=== PATIENT | male | born 1975 | race Caucasian/White ===

== ENCOUNTER 2024-01-22 20:11 | Inpatient (IN) | payer OTHER ==
[2024-01-22 21:13] VITALS: BMI 30.3
[2024-01-22] MEDS ORDERED: BENZOCAINE/MENTHOL (CHLORASEPTIC ) LOZENGE MM PRN (21:53)
[2024-01-22] MEDS ORDERED: LOPERAMIDE HCL 2 MG CAPSULE PO PRN (21:53)
[2024-01-22] MEDS ORDERED: NALOXONE HCL 0.4 MG/ML VIAL IM PRN (21:53)
[2024-01-22] MEDS ORDERED: NALOXONE HCL (KLOXXADO) 8 MG SPRAY NS PRN (21:53)
[2024-01-22] MEDS ORDERED: ACETAMINOPHEN 325 MG TABLET (FP) PO PRN (21:53)
[2024-01-22] MEDS ORDERED: IBUPROFEN 400 MG TABLET (FP) PO PRN (21:53)
[2024-01-22] MEDS ORDERED: guaiFENesin 600 MG TABLET.ER (FP) PO PRN (21:53)
[2024-01-22] MEDS ORDERED: MAGNESIUM HYDROX 2400MG/30ML ORAL SUSPENSION 30 ML CUP PO PRN (21:53)
[2024-01-22] MEDS ORDERED: NICOTINE POLACRILEX 2 MG GUM BUC PRN (21:53)
[2024-01-22] MEDS ORDERED: BENZONATATE 200 MG CAPSULE PO PRN (21:53)
[2024-01-22] MEDS ORDERED: IBUPROFEN 600 MG TABLET (FP) PO PRN (21:53)
[2024-01-22] MEDS ORDERED: MELATONIN 5 MG TABLETS ONE (22:27)
[2024-01-22] MEDS: MELATONIN 5 MG TABLETS PO SCH (22:28)
[2024-01-22] MEDS: THIAMINE 100 MG TABLET PO SCH (22:28)
[2024-01-23] MEDS: NICOTINE 21 MG/24 HOURS TOPICAL PATCH TD SCH (10:24)
[2024-01-23] MEDS: PRENATAL VITAMINS W/ FOLIC ACID TABLET (FP) PO SCH (10:26)
[2024-01-23] MEDS: TUBERCULIN PPD 5 TU/0.1ML SYRINGE (IN PATIENT USE ONLY) ID ONE (10:26)
[2024-01-23 12:04] LABS: HEMATOCRIT 48.6 % (35.4-49); HEMOGLOBIN 16.7 GM/dL (11.7-16.9); MCHC 34.4 g/dl (32.0-35.9); MEAN CELL VOLUME 90.3 fl (80-96); MEAN PLT VOLUME 7.3 fl (7.5-11.1); PLATELET COUNT 368 10^3/uL (134-434); RBC 5.38 M/mm3 (4.00-5.60); RDW 14.5 % (11.9-15.9); WHITE BLOOD COUNT 6.5 K/mm3 (4.0-10.0)
[2024-01-23 12:38] LABS: CHLORIDE 107 mmol/L (98-107); POTASSIUM 4.1 mmol/L (3.5-5.1); SODIUM 140 mmol/L (136-145)
[2024-01-23 12:40] LABS: GLUCOSE,RANDOM 106 mg/dL (74-106)
[2024-01-23 12:41] LABS: ALBUMIN 3.2 g/dl (3.4-5.0); BLOOD UREA NITROGEN 20.9 mg/dL (7-18)
[2024-01-23 12:42] LABS: ANION GAP 6 mmol/L (4-13); CO2 28 mmol/L (21-32)
[2024-01-23 12:43] LABS: SGOT/AST 26 U/L (15-37); SGPT/ALT 39 U/L (13-61)
[2024-01-23 12:45] LABS: BILIRUBIN,TOTAL 0.2 mg/dL (0.2-1); TOT PROT 6.6 g/dl (6.4-8.2)
[2024-01-23 12:46] LABS: ALK PHOS 94 U/L (45-117)
[2024-01-23 17:15] LABS: PH,URINE 8.5 (5.0-8.0); URINE APPEARANCE TURBID; URINE BILIRUBIN NEGATIVE (NEGATIVE); URINE COLOR YELLOW; URINE GLUCOSE (UA) NEGATIVE (NEGATIVE); URINE KETONE NEGATIVE (NEGATIVE); URINE LEUK ESTERASE NEGATIVE (NEGATIVE); URINE NITRITE NEGATIVE (NEGATIVE); URINE PROTEIN NEGATIVE (NEGATIVE)
[2024-01-23] MEDS: GABAPENTIN 300 MG CAPSULE PO SCH (22:18)
[2024-01-23] MEDS: traZODone HCL 50 MG TABLET (FP) PO SCH (22:18)
[2024-01-24] MEDS: ESCITALOPRAM OXALATE 10 MG TABLET PO SCH (10:01)
[2024-01-24] MEDS: MAG HYDROX/AL HYDROX/SIMETH 30 ML UNIT-DOSE CUP PO PRN (17:14)
[2024-01-25] MEDS: PANTOPRAZOLE 20 MG TABLET PO SCH (09:54)
[2024-01-25] MEDS: POLYETHYLENE GLYCOL (HEALTHYLAX) 3350 17 GM PACKET PO PRN (18:23)
[2024-01-27] MEDS: PANTOPRAZOLE 20 MG TABLET PO SCH (06:18)
[2024-01-27] MEDS: hydrOXYzine PAMOATE 25 MG CAPSULE (FP) PO PRN (08:46)
[2024-01-28] MEDS ORDERED: NICOTINE 21 MG/24 HOURS TOPICAL PATCH TD PRN (08:23)
[2024-01-28] MEDS: busPIRone HCL 5 MG TABLET PO SCH (14:09)
[2024-01-29] MEDS: ESCITALOPRAM OXALATE 10 MG TABLET PO SCH (09:52)
[2024-01-29] MEDS: BISACODYL 5 MG TABLET.DR (FP) PO PRN (15:48)
[2024-01-29] MEDS: LACTULOSE 20 GM/30 ML UDC (FOR ORAL USE ONLY) PO PRN (19:40)
[2024-01-29] MEDS: TOLNAFTATE 1% CREAM 15 GM TUBE TP SCH (21:23)
[2024-02-08] MEDS: ARTIFICIAL TEARS OPHTHALMIC DROPS OU PRN (15:53)
[2024-02-11] MEDS: NALTREXONE HCL 50 MG TABLET PO ONE (14:52)
[2024-02-12] MEDS: NALTREXONE HCL 50 MG TABLET PO SCH (09:50)
[2024-02-18] MEDS: NALTREXONE MICROSPHERES (VIVITROL) 380 MG DISP.SYRIN IM ONE (17:58)
[2024-02-19 06:26] VITALS: BP 121/78; PULSE 64; RESP 16; TEMP 96.9
== END 2024-02-19 09:10 | disposition home or self-care (01) | DRG 772 ==
LOC: YASAS 20:11 → Y3NR 21:30 → Y3E 01-23 14:06 → Y5N 02-02 13:40 → Y3E 02-02 13:41
PROVIDERS: ADMIT Allergy & Immunology; ATTEND Psychiatry & Neurology Pain Medicine
PROC: HZ42ZZZ Group Counseling for Substance Abuse Treatment, Cognitive-Behavioral (ICD-10-PCS; principal; 2024-01-22)
DX: F10.20 Alcohol dependence, uncomplicated (principal); F14.20 Cocaine dependence, uncomplicated; F17.210 Nicotine dependence, cigarettes, uncomplicated; F19.282 Other psychoactive substance dependence with psychoactive substance-induced sleep disorder; F19.24 Other psychoactive substance dependence with psychoactive substance-induced mood disorder; F41.9 Anxiety disorder, unspecified; F32.A Depression, unspecified; F43.10 Post-traumatic stress disorder, unspecified; B35.3 Tinea pedis; H04.123 Dry eye syndrome of bilateral lacrimal glands; K59.00 Constipation, unspecified; M54.50 Low back pain, unspecified; G89.29 Other chronic pain; S00.93XA Contusion of unspecified part of head, initial encounter; Y04.2XXA Assault by strike against or bumped into by another person, initial encounter; Y93.89 Activity, other specified; Y92.239 Unspecified place in hospital as the place of occurrence of the external cause; Y99.9 Unspecified external cause status; Z59.00 Homelessness unspecified
CPT/HCPCS: 36415; 80053; 80305; 80307; 81003; 85027; 86780; 87811; 93005; 93010; J2315

== ENCOUNTER 2024-02-12 20:36 | Emergency (ER) | payer OTHER ==
[2024-02-12 20:46] VITALS: BP 120/62; PULSE 66; RESP 20; TEMP 97.6; BMI 32.5
[2024-02-12] MEDS ORDERED: ONDANSETRON 4 MG TABLET PO ONE (21:04)
[2024-02-12] MEDS ORDERED: ACETAMINOPHEN 325 MG TABLET (FP) ONE (21:04)
[2024-02-12] MEDS: ONDANSETRON 8 MG TABLET (FP) PO ONE (21:07)
[2024-02-12] MEDS: ACETAMINOPHEN 325 MG TABLET (FP) PO ONE (21:07)
== END 2024-02-13 00:23 | disposition home or self-care (01) ==
LOC: JER 20:36
DX: S00.93XA Contusion of unspecified part of head, initial encounter (principal); S00.81XA Abrasion of other part of head, initial encounter; Y04.8XXA Assault by other bodily force, initial encounter; Y92.199 Unspecified place in other specified residential institution as the place of occurrence of the external cause
CPT/HCPCS: 70450-TC; 99284-25